=== PATIENT | female | born 1950 | race African-American/Black ===

== ENCOUNTER 2022-06-21 12:34 | Outpatient (REF) | payer OTHER, SELFPAY ==
[2022-06-21 13:19] LABS: Binax Internal Control QC Valid; Binax Now Covid-19 Ag Negative (Negative)
== END 2022-06-21 12:35 | disposition home or self-care (01) ==
LOC: HO.HMGCLDS 12:34
PROVIDERS: Visit Provider Internal Medicine
DX: Z20.822 Contact with and (suspected) exposure to COVID-19 (principal); J06.9 Acute upper respiratory infection, unspecified
CPT/HCPCS: 87811; C9803